=== PATIENT | male | born 1990 | race Caucasian/White ===

== ENCOUNTER 2019-10-16 02:10 | Emergency (ER) | payer OTHER, SELFPAY ==
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
[2019-10-16 03:01] VITALS: BP 109/63; PULSE 117; RESP 18; TEMP 36.9; O2SAT 99; BMI 33.2
[2019-10-16 03:41] VITALS: RESP 18; O2SAT 97
[2019-10-16] MEDS: ondansetron 4 MG Tablet PO (03:41)
[2019-10-16] MEDS: HYDROmorphone 1 mg/mL INJ 1 mL 2 MG IM (03:41)
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
--- NOTE | 2019-10-19 08:11 | DCPLANNER ---
neurology manager had message to schedule a follow up appointment for patient with ortho. neurology manager called the ortho clinic, spoke with Mila, gave clinic patients information. neurology manager was told that patients information would be printed and reviewed. Clinic will call patient with appointment information.
--- NOTE | 2019-10-20 11:44 | DCPLANNER ---
Patient had a follow up appointment scheduled for 10.18.19 with ortho - patient did attend appointment.
== END 2019-10-16 05:13 | disposition home or self-care (01) ==
PROVIDERS: Emergency Provider Emergency Medicine; PCP Nurse Practitioner Family
DX: S82.851A Displaced trimalleolar fracture of right lower leg, initial encounter for closed fracture (principal); Y09 Assault by unspecified means
CPT/HCPCS: 12345; 29515; 73610; 96372; 99282; 99283; A4590; E0114; J1170; Q0162

== ENCOUNTER 2019-10-27 05:44 | Day surgery (SDC) | payer OTHER, SELFPAY ==
[2019-10-26 07:56] LABS: Coronavirus Lab Test PTC Negative
[2019-10-27] VITALS (10 sets, daily range): BP systolic 115–153; BP diastolic 76–96; PULSE 96–113; RESP 17–22; TEMP 36.2–36.7; O2SAT 92–97; BMI 32.5
--- NOTE | 2019-10-27 | SCC_ITS ---
Procedure Done: Open reduction with internal fixation right trimalleolar ankle fracture. 31 seconds of fluoroscopic guidance, for a cumulative dose of 0.8 mGy, was provided to Dr. Zamora by the radiology department. C-arm images of the RIGHT ankle were saved for the patient's permanent record. [facility]
[2019-10-27] MEDS: sodium chloride 0.9% 1,000 ML 30 ML IV (06:13)
--- NOTE | 2019-10-27 06:20 | P.ANESASSM_ITS ---
Pre-Anesthetic Assessment Pre-Anesthetic Assessment: Height/Weight: Height 1.83 m Weight 108.862 kg Temp Pulse Resp BP Pulse Ox 97.4 F L 108 H 18 115/94 96 10/27/19 06:05 10/27/19 06:05 10/27/19 06:05 10/27/19 06:05 10/27/19 06:05 Preop Diagnosis: Right trimalleolar ankle fracture Proposed Procedure: Operation Date: 10/27/19 07:00 Proposed Procedures p ORIF Ankle 95885 S82.851A(Right) - Luciano Zamora DPM Familial anesthetic complications: no hx Last intake: Intake Last Liquid Date 10/27/19 Last Liquid Time 04:45 Last Solid Date 10/26/19 Last Solid Time 22:30 Social: Social History: Tobacco Exam: Pre-Anes Outpt Exam: alert, oriented x 3, clear to auscultation bilaterally and regular rate & rhythm Airway: Cervical ROM: WNL MP: 2 Dentition: Full Anesthetic Plan: ASA status: 1 Anesthesia: General and Regional (specify below) Risk of > 500 ml blood loss (7ml/kg in children): No Meds/Allergies Current Medications: Current Medications Generic Name Dose Route Start Last Admin Trade Name Freq PRN Reason Stop Dose Admin Sodium Chloride 1,000 mls @ 30 ml s/hr 10/27/19 05:45 10/27/19 06:13 Sodium Chloride 0.9% IV 10/28/19 05:44 30 mls/hr .Q24H HERIBERTO Administration Midazolam HCl 2 mg 10/27/19 05:35 10/27/19 06:25 Versed IVP 2 mg Q5M PRN Administration Preop Anxiety PFSH Anesthesia PFSH: Family History Denies family history of Diabetes CAD (coronary artery disease) Hypertension Stroke Social History Smoking and tobacco status: current every day smoker Alcohol intake: current Alcohol intake frequency: holidays/special occasions only Current occupational status: employed 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
[2019-10-27] MEDS: midazolam 1 mg/mL INJ 2 mL 2 MG IVP (06:25)
--- NOTE | 2019-10-27 06:35 | ANES.PROC ---
Anesthesia Procedures Procedure/Date: 10/27/19 Nerve Block ^: Nerve Block 1: Main Anesthesia: general anesthesia Time Out Performed: Yes Consent: requested by attending/covering physician, from patient, risks and benefits reviewed and patient agrees to proceed Nerve block location: popliteal (R) Anesthesia monitors applied: pulse oximetry, EKG, BP cuff and oxygen Nerve block position: supine Anesthetic Used: ropivicaine 0.5% and with decadron (4 mg) Amount of anesthesia used (mL): 30 Nerve Stimulator Used?: No Interscalene/Femoral BLK: 4 stimuplex 21 g needle used for position and inplane approach, visualize local anesthetic spread and no vascular puncture identified Injection: neg aspiration of heme and paresthesia +/- Patient Tolerated Procedure: well and no complications Complications: none
--- NOTE | 2019-10-27 06:36 | W.PM.OPSUD ---
Surgery/Procedure H&P Update DATE OF PROCEDURE: October 27, 2019 DATE H&P PERFORMED: 10/18/19 H&P UPDATE INFORMATION: I have reviewed H&P completed within last 30 days, I have examined patient prior to procedure, No changes to prior documentation and H&P is in [facility] EMR on date indicated PREOP DIAGNOSIS: Right trimalleolar ankle fracture PLANNED PROCEDURE: Operation Date: 10/27/19 07:00 Proposed Procedures p ORIF Ankle 50507 S82.851A(Right) - Luciano Zamora DPM
--- NOTE | 2019-10-27 09:15 | XR_ITS ---
WS: [id number] Right ankle, 3 views, 10/27/2019 Clinical Data: post op Comparison: Right ankle, 10/16/2019. Findings: The trimalleolar fracture has been repaired with 2 oblique orthopedic screws in the medial malleolus. There is a distal lateral plate on the fibula attached with at least 9 orthopedic screws and 3 circu mferential wires to reduce the comminuted fracture. The posterior tibial fragment is in good position . There are joe overlying the operative sites of the medial malleolus and distal lateral fibula. XR/XR ankle RT min 3V* 72703 Impression: Internal fixation of trimalleolar fracture.
[2019-10-27] MEDS: fentaNYL 50 mcg/mL INJ 2mL IVP ×2 (09:30→09:35)
[2019-10-27] MEDS: oxyCODONE-APAP 10-325 mg Tablet 1 TAB PO (09:59)
--- NOTE | 2019-10-27 10:30 | ANE.PACU2 ---
Inpatient post-anesthesia follow up: Airway intact: Yes Vital signs: Temperature 97.2 F Pulse Rate 99 Respiratory Rate 18 Blood Pressure 146/96 Pulse Oximetry 94 Oxygen Delivery Me thod Room Air Oxygen Flow Rate 8 Fraction of Inspir ed Oxygen Hydration adequate: Yes Nausea and vomiting: No Pain level: 3 Mental status: Baseline
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
== END 2019-10-27 10:30 | disposition home or self-care (01) ==
PROVIDERS: PCP Nurse Practitioner Family; Visit Provider Podiatrist Foot & Ankle Surgery
PROC: (CPT 20690; principal; 2019-10-27 07:00)
DX: S82.851A Displaced trimalleolar fracture of right lower leg, initial encounter for closed fracture (principal); F17.200 Nicotine dependence, unspecified, uncomplicated; Y04.2XXA Assault by strike against or bumped into by another person, initial encounter
CPT/HCPCS: 20690; 27822; 12345; 73610; 76000; 87635; 96374; C1713; J0690; J1100; J1885; J2250; J2405; J2704; J2795; J3010; J3490; J7030

== ENCOUNTER → 2019-11-09 10:42 | Outpatient (BNVA) | payer OTHER, SELFPAY | PROVIDERS: PCP Nurse Practitioner Family; Visit Provider Podiatrist Foot & Ankle Surgery | DX: Z98.890 Other specified postprocedural states (principal); S93.431D Sprain of tibiofibular ligament of right ankle, subsequent encounter; W10.8XXD Fall (on) (from) other stairs and steps, subsequent encounter; Z20.828 Contact with and (suspected) exposure to other viral communicable diseases | CPT/HCPCS: 73610; 87635 ==

== ENCOUNTER 2019-11-11 06:04 | Day surgery (SDC) | payer OTHER, SELFPAY ==
[2019-11-10 13:53] VITALS: BMI 32.5
[2019-11-11] VITALS (9 sets, daily range): BP systolic 112–142; BP diastolic 77–94; PULSE 80–98; RESP 14–20; TEMP 36.2–36.6; O2SAT 96–99
--- NOTE | 2019-11-11 | SCC_ITS ---
Procedure Done: Open reduction internal fixation ankle right syndesmosis 84900 32 seconds of fluoroscopic guidance, for a cumulative dose of 07 mGy, was provided to Dr. Zamora by the radiology department. C-arm images of the RIGHT ankle were saved for the patient's permanent record. [facility]
[2019-11-11] MEDS: sodium chloride 0.9% 1,000 ML 30 ML IV (06:31)
--- NOTE | 2019-11-11 07:03 | W.PM.OPSUD ---
Surgery/Procedure H&P Update DATE OF PROCEDURE: November 11, 2019 DATE H&P PERFORMED: 11/09/19 H&P UPDATE INFORMATION: I have reviewed H&P completed within last 30 days, I have examined patient prior to procedure, No changes to prior documentation and H&P is in [facility] EMR on date indicated PREOP DIAGNOSIS: Right ankle syndesmosis instability PLANNED PROCEDURE: Operation Date: 11/11/19 08:10 Proposed Procedures p ORIF Ankle right syndesmosis 96474 S82.851A(Right) - Luciano Zamora DPM
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
--- NOTE | 2019-11-11 07:11 | ANES.PREANE2 ---
Pre-Anesthetic Assessment Pre-Anesthetic Assessment: Height/Weight: Height 1.83 m Weight 108.862 kg Temp Pulse Resp BP Pulse Ox 97.2 F L 98 20 H 139/90 97 11/11/19 06:23 11/11/19 06:23 11/11/19 06:23 11/11/19 06:23 11/11/19 06:23 Preop Diagnosis: Right ankle syndesmosis instability Proposed Procedure: Operation Date: 11/11/19 08:10 Proposed Procedures p ORIF Ankle right syndesmosis 45063 S82.851A(Right) - Luciano Zamora DPM Familial anesthetic complications: none Was Beta Daniel taken within 24 hours: N/A Last intake: Intake Last Liquid Date 11/10/19 Last Liquid Time 20:30 Last Solid Date 11/10/19 Last Solid Time 18:00 Social: Social History: Tobacco and No alcohol Exam: Pre-Anes Outpt Exam: alert, oriented x 3, clear to auscultation bilaterally and regular rate & rhythm Airway: Cervical ROM: WNL MP: 2 Dentition: Full Anesthetic Plan: ASA status: 1 Anesthesia: General and Regional (specify below) Risk of > 500 ml blood loss (7ml/kg in children): No Meds/Allergies Current Medications: Current Medications Generic Name Dose Route Start Last Admin Trade Name Freq PRN Reason Stop Dose Admin Sodium Chloride 1,000 mls @ 30 ml s/hr 11/11/19 06:15 11/11/19 06:31 Sodium Chloride 0.9% IV 11/12/19 06:14 30 mls/hr .Q24H HERIBERTO Administration PFSH Anesthesia PFSH: Family History Denies family history of Diabetes CAD (coronary artery disease) Hypertension Stroke Social History Smoking and tobacco status: current every day smoker Alcohol intake: current Alcohol intake frequency: holidays/special occasions only Current occupational status: employed 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
[2019-11-11] MEDS: midazolam 1 mg/mL INJ 2 mL 2 MG IVP (07:19)
--- NOTE | 2019-11-11 07:28 | ANES.PROC ---
Anesthesia Procedures Procedure/Date: 11/11/19 Nerve Block ^: Nerve Block 1: Main Anesthesia: general anesthesia Time Out Performed: Yes Consent: requested by attending/covering physician, from patient, risks and benefits reviewed and patient agrees to proceed Nerve block location: popliteal (R) Anesthesia monitors applied: pulse oximetry, EKG, BP cuff and oxygen Nerve block position: supine Anesthetic Used: ropivicaine 0.5% and with decadron (4 mg) Amount of anesthesia used (mL): 30 Ultrasound used to: recognize landmarks Nerve Stimulator Used?: No Interscalene/Femoral BLK: 4 stimuplex 21 g needle used for position and inplane approach, visualize local anesthetic spread and no vascular puncture identified Injection: neg aspiration of heme Patient Tolerated Procedure: well and no complications Complications: none
--- NOTE | 2019-11-11 09:59 | XRR_ITS ---
PROCEDURE INFORMATION: Exam: XR Right Ankle Exam date and time: 11/11/2019 10:17 AM Age: 28 years old Clinical indication: Device placement; Joint fixation hardware; Prior surgery; Surgery date: Post-operative (0-2 days); Additional info: Post op TECHNIQUE: Imaging protocol: XR Right ankle. Views: 3 or more views. COMPARISON: CR XR ankle RT min 3V* [id number] 11/09/2019 10:48 AM FINDINGS: Bones/joints: Obliquely oriented fracture involving the distal fibular diaphysis stabilized with malleable surgical plate, screws and cerclage wires. Stable. In addition, 2 surgical screws stabilizing the medial malleolus in near anatomical alignment. Ankle mortise is symmetrical Soft tissues: Tiny ossific density in the soft tissues anterior to the tibiotalar joint. 3 mm. XR/XR ankle RT min 3V* [id number] IMPRESSION: 1. Obliquely oriented fracture involving the distal fibular diaphysis stabilized with malleable surgical plate, screws and cerclage wires. Stable. In addition, 2 surgical screws stabilizing the medial malleolus in near anatomical alignment. The latter is improved from the study dated 11-09-19. 2. Tiny ossific density in the soft tissues anterior to the tibiotalar joint. 3 mm.
--- NOTE | 2019-11-11 11:00 | ANE.PACU2 ---
Inpatient post-anesthesia follow up: Airway intact: Yes Vital signs: Temperature 97.9 F Pulse Rate 91 Respiratory Rate 16 Blood Pressure 141/88 Pulse Oximetry 98 Oxygen Delivery Me thod Room Air Oxygen Flow Rate 8 Fraction of Inspir ed Oxygen Hydration adequate: Yes Nausea and vomiting: No Pain level: 1 Mental status: Baseline
== END 2019-11-11 11:10 | disposition home or self-care (01) ==
PROVIDERS: PCP Nurse Practitioner Family; Visit Provider Podiatrist Foot & Ankle Surgery
PROC: (CPT 27829; principal; 2019-11-11 08:10)
PROC: (CPT 27829; 2019-11-11 08:10)
DX: S99.811A Other specified injuries of right ankle, initial encounter (principal); W10.9XXA Fall (on) (from) unspecified stairs and steps, initial encounter; F17.200 Nicotine dependence, unspecified, uncomplicated; Y92.009 Unspecified place in unspecified non-institutional (private) residence as the place of occurrence of the external cause
CPT/HCPCS: 27829; 12345; 73610; 76000; 96365; 96374; C1713; J0690; J1100; J1885; J2250; J2405; J2704; J2765; J2795; J3010; J3490; J7030

== ENCOUNTER → 2019-11-23 15:35 | Outpatient (BNVA) | payer OTHER, SELFPAY | PROVIDERS: PCP Nurse Practitioner Family; Visit Provider Podiatrist Foot & Ankle Surgery | DX: S82.851A Displaced trimalleolar fracture of right lower leg, initial encounter for closed fracture (principal); X58.XXXA Exposure to other specified factors, initial encounter | CPT/HCPCS: 73610 ==

== ENCOUNTER → 2019-12-08 14:11 | Outpatient (BNVA) | payer OTHER, SELFPAY | PROVIDERS: PCP Nurse Practitioner Family; Visit Provider Podiatrist Foot & Ankle Surgery | DX: S82.851A Displaced trimalleolar fracture of right lower leg, initial encounter for closed fracture (principal); W10.8XXA Fall (on) (from) other stairs and steps, initial encounter; S93.431A Sprain of tibiofibular ligament of right ankle, initial encounter | CPT/HCPCS: 73610 ==

== ENCOUNTER → 2019-12-28 09:24 | Outpatient (BNVA) | payer OTHER, SELFPAY | PROVIDERS: PCP Nurse Practitioner Family; Visit Provider Podiatrist Foot & Ankle Surgery | DX: S93.431A Sprain of tibiofibular ligament of right ankle, initial encounter (principal); Z98.890 Other specified postprocedural states; S82.851A Displaced trimalleolar fracture of right lower leg, initial encounter for closed fracture | CPT/HCPCS: 73610 ==

== ENCOUNTER 2019-12-28 15:08 | Outpatient (CLI) | payer OTHER, SELFPAY | END 2019-12-28 15:09 | disposition home or self-care (01) | LOC: SPT 15:09 | PROVIDERS: PCP Nurse Practitioner Family; Visit Provider Podiatrist Foot & Ankle Surgery | DX: Z46.89 Encounter for fitting and adjustment of other specified devices (principal); S93.431D Sprain of tibiofibular ligament of right ankle, subsequent encounter; X58.XXXD Exposure to other specified factors, subsequent encounter | CPT/HCPCS: 97760; L4361 ==